=== PATIENT | female | born 1980 | race Caucasian/White ===

== ENCOUNTER 2019-01-15 11:14 | Outpatient (CLI) | payer OTHER ==
[~2019-01-15] VITALS: Ht 154.9 cm; Wt 70.0 kg
[2019-01-15 11:30] VITALS: BP 98/52
[2019-01-15] MEDS ORDERED: PNV11TAB PO (11:43)
[2019-01-15 11:50] LABS: MICROSCOPIC INDICATED
[2019-01-15] MEDS ORDERED: NITR100C56 PO (12:23)
== END 2019-01-15 12:36 | disposition home or self-care (01) ==
LOC: LDOP 11:14
PROVIDERS: ATTEND Obstetrics & Gynecology Maternal & Fetal Medicine
DX: O09.512 Supervision of elderly primigravida, second trimester (principal); O26.892 Other specified pregnancy related conditions, second trimester; R51 Headache; R42 Dizziness and giddiness; Z3A.27 27 weeks gestation of pregnancy
CPT/HCPCS: 59025; 81001; 87086; 99211; G0463